=== PATIENT | female | born 2000 | race Caucasian/White ===

== ENCOUNTER 2018-04-03 05:50 | Day surgery (SDC) | payer BC ==
[2018-04-03] VITALS (9 sets, daily range): BP systolic 127–141; BP diastolic 68–88
[~2018-04-03] VITALS: Ht 172.7 cm; Wt 65.3 kg
[~2018-04-03 05:50] MED LIST: BUSPAR10 MG ORAL; CELEXA20 MG ORAL; MINOCYCLINE HC100 MG PO; testosterone SUBQ
[2018-04-03] MEDS ORDERED: ceFAZolin sod 2 GM in NS 55 ML IVPB ONE (07:00)
[2018-04-03] MEDS ORDERED: Succinylcholine 20mg/ml 10ml vial ONE (07:08)
[2018-04-03] MEDS ORDERED: Zemuron 50mg/5ml Inj IV ONE (07:08)
[2018-04-03] MEDS ORDERED: Propofol 200mg/20ml IV ONE (07:09)
[2018-04-03] MEDS ORDERED: Midazolam 2mg/2ml Inj ONE (07:09)
[2018-04-03] MEDS ORDERED: Lidocaine 1% MPF 10mg/ml 5ml ONE (07:09)
[2018-04-03] MEDS ORDERED: fentaNYL 100 mcg/2 mL IV ONE ×2 (07:09→08:32)
[2018-04-03] MEDS ORDERED: Bupivacaine 0.5% Inj 30 ml vial INJ ONE (07:18)
[2018-04-03] MEDS ORDERED: Bacitracin Oint 15gm Tube TOPIC ONE (07:18)
[2018-04-03] MEDS ORDERED: Lidocaine 1% 10mg/ml/Epi 0.005mg/ml 30ml vial INJ ONE (07:18)
[2018-04-03] MEDS ORDERED: Muri-Lube ONE (07:18)
[2018-04-03] MEDS ORDERED: Dyna-Hex 2% Top Sol 2oz TOPIC ONE (07:18)
--- NOTE | 2018-04-03 07:21 | Pre-Procedure Note/Attestation ---
Pre-Procedure Note/Attestation Complete Prior to Procedure Planned Procedure: bilateral Indications for Procedure Pre-Operative Diagnosis: gender identity disorder Attestation I attest that I discussed the nature of the procedure; its benefits; risks and complications; and alternatives (and the risks and benefits of such alternatives ), prior to the procedure, with the patient (or the patient's legal medical detail representative). I attest that, if there was a reasonable possibility of needing a blood transfusion, the patient (or the patient's legal medical detail representative) was given the [facility] standardized written summary, pursuant to the [place] Blood Safety Act ([place] Health and Safety Code # 1645, as amended). I attest that I re-evaluated the patient just prior to the surgery and that there has been no change in the patient's H&P, except as documented below: Tomer Best MD Apr 03, 2018 07:21
[2018-04-03] MEDS ORDERED: Sterile Water Irrig 1000ml IRRIG ONE (07:30)
[2018-04-03] MEDS ORDERED: LR 1000ml ONE (07:30)
[2018-04-03] MEDS ORDERED: NS Irrig 1000ml ONE (07:30)
--- NOTE | 2018-04-03 07:30 | Anethesia Preoperative Eval ---
Anesthesia Pre-op PMH/ROS General Date of Evaluation: Apr 03, 2018 Time of Evaluation: 07:22 Anesthesiologist: Christina Godinez CRNA ASA Score: ASA 2 Mallampati Score Class I : Soft palate, uvula, fauces, pillars visible Class II: Soft palate, uvula, fauces visible Class III: Soft palate, base of uvula visible Class IV: Only hard plate visible Mallampati Classification: Class I Surgeon: Nasir Diagnosis: Gender Identity disorder Surgical Procedure: (B) mastectomy with nipple graft Anesthesia History: none - daily marijuana Social History: current smoker Family History: no anesthesia problems Allergies: Coded Allergies: HYDROCODONE (Verified Allergy, Intermediate, itching, 04/02/18) SULFA (SULFONAMIDE ANTIBIOTICS) (Verified Adverse Reaction, Intermediate, nausea and vomiting, 04/02/18) Medications: see eMAR Patient NPO?: Yes NPO Date: Apr 03, 2018 NPO Time: 00:00 Past Medical History Cardiovascular: Denies: HTN, CAD, [place], valve dz, arrhythmia, other Pulmonary: Denies: asthma, COPD, LUCY, other Gastrointestinal/Genitourinary: Denies: GERD, CRI, ESRD, other Neurologic/Psychiatric: Reports: depression/anxiety, other - mild autism spectrum; gender identity disorder; Denies: dementia, CVA, TIA HEENT: Denies: cataract (L), cataract (R), glaucoma, [place] (L), [place] (R), other Hematology/Immune: Denies: anemia, DVT, bleeding disorder, other Musculoskeletal/Integumentary: Denies: OA, RA, DJD, DDD, edema, other PMH Narrative: as above PSxH Narrative: wisdom teeth distraction Anesthesia Pre-op Phys. Exam Physician Exam Last Vital Signs Date Time Temp Pulse Resp B/P (MAP) Pulse Ox O2 Delivery O2 Flow Rate FiO2 04/03/18 06:27 96.9 74 20 134/83 98 Room Air Constitutional: NAD Neurologic: CN 2-12 intact Cardiovascular: RRR Respiratory: CTA Gastrointestinal: S/NT/ND Airway Exam Mallampati Score: Class I MO: full Neck: no limitations TMD: > 3 FB ROM: full Teeth: intact Dentures: no upper, no lower Anesthesia Pre-op A/P Labs reviewed; see chart Urine Test Test 04/03/18 06:00 Urine HCG, Qualitative Negative (NEGATIVE) Risk Assessment & Plan Assessment: ASA 2, ok to proceed Plan: GETA Status Change Before Surgery: No Pre-Antibiotics Drug: Christina Nielsen CRNA Apr 03, 2018 07:30
[2018-04-03] MEDS ORDERED: Ketorolac 30mg Inj ONE (08:40)
[2018-04-03] MEDS ORDERED: Dexamethasone 4mg/ml vial ONE (08:40)
[2018-04-03] MEDS ORDERED: Metoclopramide 10mg/2ml Inj ONE (08:40)
[2018-04-03] MEDS ORDERED: NS Irrig 1000ml IRRIG ONE (08:40)
[2018-04-03] MEDS ORDERED: DiphenhydrAMINE 50mg/ml Inj IVP PRN (08:45)
[2018-04-03] MEDS ORDERED: LORazepam Inj 2mg/ml 1ml IV PRN (08:45)
[2018-04-03] MEDS ORDERED: Hydromorphone 0.5mg/0.5ml inj IVP PRN (08:45)
[2018-04-03] MEDS ORDERED: Muri-Lube ORAL ONE (10:05)
[2018-04-03] MEDS ORDERED: Glycopyrrolate 0.2mg/ml 1ml Vial ONE (10:15)
[2018-04-03] MEDS ORDERED: Neostigmine 1mg/ml 10ml Inj ONE (10:15)
--- NOTE | 2018-04-03 10:34 | Operative Note - PDOC ---
Operative Note Operative Note Date of Operation/Procedure: Apr 03, 2018 Pre-op Diagnosis: gender identity disorder Procedure: bilateral mastectomy, bilateral nipple areola reconstruction Post-op Diagnosis: same as pre-op Surgeon: Nasir Junior Estimator: Brock Anesthesia: general Specimen: yes - 1) right breast, 2) left breast Complications: none Condition: stable Estimated Blood Loss: volume - 50 cc Drains: CHERI - x2 Implant(s) used?: No Tomer Best MD Apr 03, 2018 10:34
--- NOTE | 2018-04-03 10:35 | Discharge Instructions ---
Discharge Instructions Discharge Instructions Follow up with: Dr. Best 04/08/18 Diet: regular Resume Normal Activity?: Yes Activity: ambulate For Surgical Patients Dressing Care: keep dry and clean May shower: No - sponge bathe only For Congestive Heart Failure Reminder Report to your physician any weight gain of 5 pounds or more in one week. Tomer Best MD Apr 03, 2018 10:35
[2018-04-03] MEDS ORDERED: D5 1/2NS 1,000 ML IV SCH (10:41)
[2018-04-03] MEDS ORDERED: Tylenol #3 tab (300mg/30mg) ORAL PRN (10:45)
--- NOTE | 2018-04-03 10:48 | Immediate Post-Op Evaluation ---
Immediate Post-Op Evalulation Immediate Post-Op Evalulation Procedure: (B) mastectomy with nipple graft Date of Evaluation: Apr 03, 2018 Time of Evaluation: 10:36 IV Fluids: LR 2000 ml Estimated Blood Loss: 30 ml Blood Pressure Systolic: 141 Blood Pressure Diastolic: 77 Pulse Rate: 92 Respiratory Rate: 12 O2 Sat by Pulse Oximetry: 100 Temperature (Fahrenheit): 97.5 Pain Score (1-10): 0 Nausea: No Vomiting: No Complications none Patient Status: reacts, patent, extubated Drug: cefazolin 2 gm Time Given: 07:45 Christina Godinez CRNA Apr 03, 2018 10:48
--- NOTE | 2018-04-03 11:34 | 48 Hour Post Anesthesia Eval ---
Post Anesthesia Evaluation Procedure: (B) mastectomy with nipple graft Date of Evaluation: Apr 03, 2018 Time of Evaluation: 11:33 Blood Pressure Systolic: 140 0: 80 Pulse Rate: 88 Respiratory Rate: 20 Temperature (Fahrenheit): 97.5 O2 Sat by Pulse Oximetry: 100 Airway: patent Nausea: No Vomiting: No Pain Intensity: 2 Hydration Status: adequate Cardiopulmonary Status: stable Mental Status/LOC: patient returned to baseline Follow-up Care/Observations: per plastic surgery Post-Anesthesia Complications: none Follow-up care needed: ready to discharge Christina Godinez CRNA Apr 03, 2018 11:34
--- NOTE | 2018-04-03 19:15 | Operative Note - Dictated ---
DATE OF OPERATION: 04/03/2018 PREOPERATIVE DIAGNOSIS: Gender identity disorder. POSTOPERATIVE DIAGNOSIS: Gender identity disorder. PROCEDURE: 1. Bilateral mastectomy. 2. Bilateral nipple-areola reconstruction utilizing full-thickness nipple-areola grafts (each graft 2.5 x 2.5 centimeters). SURGEON: Tomer Best M.D. SEED CONE PICKER: Alfonzo Gutiérrez M.D. ANESTHESIA: General. ESTIMATED BLOOD LOSS: 50 mL. SPECIMENS: 1. Right breast. 2. Left breast. DRAINS: Fifteen-[place] Shawn x2. COMPLICATIONS: None. CONDITION: To recovery room stable. INDICATION FOR PROCEDURE: This is a very pleasant 17-year-old trans male who desires top surgery mastectomy as a part of his transition. He has the appropriate letter of recommendation from his therapist and meets all WPATH criteria for top surgery. I have discussed the risks, benefits, and alternatives of the procedure with him including, but not limited to bleeding, infection, scarring, nerve injury, asymmetry, contour deformity, loss of nipple sensation, loss of nipple graft, and need for additional surgery including revisions. I discussed the orientation of the incisions and the unpredictable nature of scarring. No guarantees were made regarding the outcome. All of his questions have been answered to the best of my ability. He verbalized understanding with everything that we discussed and wishes to proceed. DESCRIPTION OF PROCEDURE: The patient was identified in the preoperative holding area and marked in the standing position. He was then brought to the operating room. He was placed in the supine position on the operating room table with his arms extended on arm boards. All bony prominences were adequately padded. Sequential compression devices were placed and intravenous antibiotics were administered. After induction of anesthesia, the patient's chest was prepped and draped in sterile fashion. Starting on the left chest first, the nipple-areola complex was placed on manual stretch and a tatitlek measuring 2.5 centimeters in diameter was drawn out centered around the nipple. Next, the subdermal plane was infiltrated with 4 mL of 1% lidocaine with epinephrine. I then used a 15 blade scalpel to harvest a full-thickness nipple-areola graft. The graft was subsequently defatted, wrapped in wet gauze, and placed on the back table. Next, I proceeded to make the inframammary fold incision using a 10 blade scalpel. Dissection proceeded down to the level of the pectoralis major fascia. I then made the superior breast incision using a 10 blade scalpel and dissected down to Dhara's fascia. Skin hooks were used to retract the skin and a plane of dissection was created between the breast parenchyma and subcutaneous tissue heading in a superior direction towards the level of the clavicle. After this was done, the breast parenchyma was then elevated off of the pectoralis major fascia proceeding from a medial to lateral direction. The breast was then passed off the table as a specimen. Hemostasis was achieved and the wound was irrigated with saline. A 15-[place] Shawn drain was placed within the wound and brought out through a separate stab incision and secured using 2-0 silk sutures. The skin hossein were then used to temporarily reapproximate the skin. I shifted my attention to the contralateral side where the identical procedure was performed. The patient was then sat up on the operating room table and it appeared that he had very reasonable symmetry between the 2 sides of his chest. I then used a marking pen to draw the proposed location of the new nipple-areola complex on each side and these markings were confirmed using direct measurements. He was then placed back in the supine position and the skin hossein were removed. On each side, the chest incision was closed using 0 Vicryl suture for the Dhara's fascia layer, 3-0 PDS suture for the subdermal layer, and a running 3-0 subcuticular Monocryl suture for the skin. Next, the marking corresponding to the nipple-areola complex was incised using a 15 blade scalpel and the intervening skin was de-epithelialized. Each of the full-thickness nipple-areola grafts were then brought onto the appropriate side of the chest and inset using a running 5-0 fast absorbing suture. Next, several 2-0 silk suture ties were placed around the periphery of each nipple-areola graft. A skin graft bolster was fashioned and secured into place using the 2-0 silk suture ties. Next, 10 mL of 0.5% plain Marcaine were injected into each of the chest incisions. Sterile dressings were then applied. The patient tolerated the procedure well and was sent to the recovery room in stable condition. All instrument, sharp, and sponge counts were correct at the conclusion of the case. Tomeraren Best M.D. DR: CODEY JOB#: [id number] CC: MERARI
== END 2018-04-03 14:00 | disposition home or self-care (01) ==
LOC: SUR 05:50
DX: F64.9 Gender identity disorder, unspecified (principal); F32.9 Major depressive disorder, single episode, unspecified; F41.9 Anxiety disorder, unspecified; F84.0 Autistic disorder; F17.200 Nicotine dependence, unspecified, uncomplicated; Z88.5 Allergy status to narcotic agent; Z88.2 Allergy status to sulfonamides
CPT/HCPCS: 15200; 19303; 81025; J0330; J1100; J1885; J2250; J2405; J2704; J2710; J2765; J3010; J3490; 94003; 94150